=== PATIENT | male | born 1990 ===

== ENCOUNTER 2017-02-06 11:05 | Emergency (ER) | payer OTHER ==
--- NOTE | 2017-02-06 12:07 | ED PDOC ---
HPI: Eye Injury/Pain Time Seen by Provider: 02/06/17 11:31 Chief Complaint (Nursing): Eye Problem Chief Complaint (Provider): Left eye injury History Per: Patient History/Exam Limitations: no limitations Onset/Duration Of Symptoms: Days (3) Current Symptoms Are (Timing): Still Present Severity: None Description Of Pain/Injury (Context): Pt states he was holding a wrench and slipped Past Medical History Reviewed: Historical Data, Nursing Documentation, Vital Signs Vital Signs: Last Vital Signs Temp 98.9 F 02/06/17 11:22 Pulse 74 02/06/17 11:22 Resp 18 02/06/17 11:22 BP 199/93 H 02/06/17 11:22 Pulse Ox 98 02/06/17 11:22 - Medical History PMH: HTN - Family History Family History: States: No Known Family Hx - Home Medications Home Medications: Ambulatory Orders Medication Instructions Recorded Polymyxin/Trimethoprim Sulfate 1 drop XX Q6H 10 Days 02/06/17 [Polytrim Ophth Soln] - Allergies Allergies/Adverse Reactions: Allergies Allergy/AdvReac Type Severity Reaction Status Date / Time No Known Allergies Allergy Verified 02/06/17 11:22 Review of Systems ROS Statement: Except As Marked, All Systems Reviewed And Found Negative Eyes: Positive for: Redness, Other Physical Exam - Reviewed Nursing Documentation Reviewed: Yes Vital Signs Reviewed: Yes - Physical Exam Appears: Positive for: Well, Non-toxic, No Acute Distress Head Exam: Positive for: ATRAUMATIC, NORMAL INSPECTION, NORMOCEPHALIC Skin: Positive for: Warm. Negative for: Normal Color (Healing abrasion inferior to the left eye ) Eye Exam: Positive for: EOMI, PERRL, Other ((+) left subconjunctival hemorrhage , no pooling of dye during flouro exam. (-) abrasions, visual acuity normal ). Negative for: Normal appearance ENT: Positive for: Normal ENT Inspection Neck: Positive for: Normal, Painless ROM Cardiovascular/Chest: Positive for: Regular Rate, Rhythm Respiratory: Positive for: Normal Breath Sounds. Negative for: Accessory Muscle Use, Respiratory Distress Back: Positive for: Normal Inspection Extremity: Positive for: Normal ROM Neurologic/Psych: Positive for: Alert, Oriented - ECG O2 Sat by Pulse Oximetry: 98 Disposition - Clinical Impression Clinical Impression: Left eye injury, Subconjunctival bleed - Patient ED Disposition Is Patient to be Admitted: No Counseled Patient/Family Regarding: Diagnosis, Need For Followup, Rx Given - Disposition Referrals: [facility] [Outside] Yair Wheeler MD [Staff Provider] - Disposition: Routine/Home Disposition Time: 12:08 Condition: GOOD Prescriptions: Polymyxin/Trimethoprim Sulfate [Polytrim Ophth Soln] 1 drop XX Q6H 10 Days Instructions: Subconjunctival Hemorrhage (ED) Print Language: MALTESE
[2017-02-06 12:40] VITALS: BP 141/94; PULSE 66; RESP 16; TEMP 98.6
[2017-02-06 15:18] VITALS: O2SAT 98
== END 2017-02-06 13:05 | disposition home or self-care (01) ==
LOC: H.ER 11:05
DX: S05.92XA Unspecified injury of left eye and orbit, initial encounter (principal); W22.8XXA Striking against or struck by other objects, initial encounter; Y92.89 Other specified places as the place of occurrence of the external cause; I10 Essential (primary) hypertension